=== PATIENT | male | born 1985 | race Caucasian/White ===

== ENCOUNTER 2022-12-13 16:46 | Emergency (ER) | payer OTHER ==
--- NOTE | 2022-12-13 17:25 | ED ---
Eye Problem HPI <Ivanna Valenzuela - Last Filed: 12/13/22 17:24> <Vanessa Olmstead - Last Filed: 12/13/22 20:37> - General Stated complaint: left eye pain Time Seen by Provider: 12/13/22 17:24 - History of Present Illness Initial comments: Patient is a 37-year-old male who presents the emergency department from [place] for left eye redness. States he initially had pain a couple days ago which resolved on its own. He denies any injury to the eye. States the left eye is "foggy." Patient does wear contact lens. (Ivanna Valenzuela) Note reviewed: This is a pleasant 37-year-old male who presents the emergency department from [place] for left eye redness. Patient reports left eye pain and redness that started 2 days ago. It has since resolved. He reports that he irritated after putting her contact in. He denies any purulent discharge, vision changes or vision loss, or photophobia. (Vanessa Olmstead) - Related Data Allergies Allergy/AdvReac Type Severity Reaction Status Date / Time Penicillins AdvReac Rash/Hives Verified 12/13/22 17:25 Review of Systems ROS Other: All systems not noted in ROS Statement are negative. <Ivanna Valenzuela - Last Filed: 12/13/22 17:24> ROS Other: All systems not noted in ROS Statement are negative. <Vanessa Olmstead - Last Filed: 12/13/22 20:37> ROS Statement: Those systems with pertinent positive or pertinent negative responses have been documented in the HPI. General Exam <Ivanna Valenzuela - Last Filed: 12/13/22 17:24> <Vanessa Olmstead - Last Filed: 12/13/22 20:37> - General Exam Comments Initial Comments: Visual Physical Exam Vital signs reviewed General: Well-appearing, nontoxic, no acute distress. Head: Normocephalic, atraumatic Eyes: PERRLA, EOMI ENT: Airway patent Chest: Nonlabored breathing Skin: No visual rash, normal skin tone Neuro: Alert and oriented 3 Musculoskeletal: No gross abnormalities (Ivanna Valenzuela) General: Alert, in no acute distress Head: atraumatic normocephalic. Eyes PERRL, EOMI intact, mucous membranes moist, mild fluorescein uptake to the left eye consistent with corneal abrasion Respiratory: Lungs clear to auscultation bilaterally Cardiovascular: Heart rate regular rate and rhythm Abdominal: Soft without guarding or rebound Extremities: Normal inspection with full range of motion and normal capillary refill Neuroogic: alert and oriented 3, CN II-XII intact, able to ambulate with steady gait Skin: warm dry and intact with normal color (Vanessa Olmstead) Course Vital Signs 12/13/22 17:21 Temperature 98.2 F Pulse Rate 75 Respiratory 18 Rate Blood Pressure 118/74 O2 Sat by Pulse 99 Oximetry Medical Decision Making <Ivanna Valenzuela - Last Filed: 12/13/22 17:24> <Vanessa Olmstead - Last Filed: 12/13/22 20:37> - Medical Decision Making I performed the QuickNote portion of this chart - Ivanna Valenzuela PA-C (Ivanna Valenzuela) Was pt. sent in by a medical professional or institution (KARI Jackson, DIRECTOR BUSINESS DEVELOPMENT, urgent care, hospital, or [facility]...) When possible be specific @ -[place] Did you speak to anyone other than the patient for history (EMS, parent, family, police, friend...)? What history was obtained from this source @ -[No] Did you review nursing and triage notes (agree or disagree)? Why? @ -[I reviewed and agree with nursing and triage notes] Were old charts reviewed (outside hosp., previous admission, EMS record, old EKG, old radiological studies, urgent care reports/EKG's, [facility] records)? Report findings @ -[No old charts were reviewed] Differential Diagnosis (chest pain, altered mental status, abdominal pain women, abdominal pain men, vaginal bleeding, weakness, fever, dyspnea, syncope, headache, dizziness, GI bleed, back pain, seizure, CVA, palpatations, mental health, musculoskeletal)? @ -[not applicable] EKG interpreted by me (3pts min.). @ -[As above] X-rays interpreted by me (1pt min.). @ -[None done] CT interpreted by me (1pt min.). @ -[None done] U/S interpreted by me (1pt. min.). @ -[None done] What testing was considered but not performed or refused? (CT, X-rays, U/S, labs)? Why? @ -[None] What meds were considered but not given or refused? Why? @ -[None] Did you discuss the management of the patient with other professionals (professionals i.e. , PA, DIRECTOR BUSINESS DEVELOPMENT, lab, RT, psych nurse, social welfare administrator, customer field representative, teacher, systems support officer, home health care case manager)? Give summary @ -[No] Was smoking cessation discussed for >3mins.? @ -[No] Was critical care preformed (if so, how long)? @ -[No] Were there social determinants of health that impacted care today? How? (Homelessness, low income, unemployed, alcoholism, drug addiction, transportation, low edu. Level, literacy, decrease access to med. care, assisted, rehab)? @ -[No] Was there de-escalation of care discussed even if they declined (Discuss DNR or withdrawal of care, Hospice)? DNR status @ -[No] What co-morbidities impacted this encounter? (DM, HTN, Smoking, COPD, CAD, Cancer, CVA, ARF, Chemo, Hep., AIDS, mental health diagnosis, sleep apnea, morbid obesity)? @ -[None] Was patient admitted / discharged? Hospital course, mention meds given and route, prescriptions, significant lab abnormalities, going to OR and other pertinent info. @ -[Discharge. This is a 34-year-old male presents to the emergency department with left eye pain. Patient had a thorough history and physical on the ED. Physical exam unremarkable. Fluorescein exam reveals mild fluorescein uptake consistent with corneal abrasion. Return precautions were discussed at length. Patient discharged in stable condition. Case discussed with Dr. Lianet SHEN who agrees with plan of care Undiagnosed new problem with uncertain prognosis? @ -[No] Drug Therapy requiring intensive monitoring for toxicity (Heparin, Nitro, Insulin, Cardizem)? @ -[No] Were any procedures done? @ -[No] Diagnosis/symptom? @ -Left eye problem - Corneal abrasion Acute, or Chronic, or Acute on Chronic? @ -Acute Uncomplicated (without systemic symptoms) or Complicated (systemic symptoms)? @ -Uncomplicated Side effects of treatment? @ -[No] Exacerbation, Progression, or Severe Exacerbation? @ -[No] Poses a threat to life or bodily function? How? (Chest pain, [place], [place], pneumonia, PE, COPD, DKA, ARF, appy, cholecystitis, CVA, Diverticulitis, Homicidal, Suicidal, threat to staff... and all critical care pts) @ -low likelihood (Vanessa Olmstead) Disposition <Ivanna Valenzuela - Last Filed: 12/13/22 17:24> Is patient prescribed a controlled substance at d/c from ED?: No Time of Disposition: 20:25 <Vanessa Olmstead - Last Filed: 12/13/22 20:37> Clinical Impression: Corneal abrasion Disposition: HOME SELF-CARE Instructions (If sedation given, give patient instructions): Corneal Abrasion (ED), Eye Foreign Body (ED) Additional Instructions: Return to the nearest emergency department symptoms worsen or persist Referrals: None,Stated [Primary Care Provider] - 1-2 days
[2022-12-13 17:28] VITALS: BP 118/74; PULSE 75; RESP 18; TEMP 98.2
[2022-12-13] MEDS ORDERED: FLUORESCEIN STRIPS 1 MG STRIP BOTH EYES ONE (19:59)
[2022-12-13] MEDS ORDERED: TOBRA-DEXAMET 0.3-0.1% OPHTH DROPS 2.5 ML BTL BOTH EYES SCH (20:00)
[2022-12-13] MEDS ORDERED: PROPARACAINE 0.5% OPHTH DROPS 15 ML BTL LEFT EYE STA (20:00)
== END 2022-12-13 20:34 | disposition home or self-care (01) ==
LOC: EC 16:46
DX: S05.02XA Injury of conjunctiva and corneal abrasion without foreign body, left eye, initial encounter (principal); Z88.0 Allergy status to penicillin; X58.XXXA Exposure to other specified factors, initial encounter
CPT/HCPCS: 99283